=== PATIENT | female | born 1955 | race Caucasian/White ===

== ENCOUNTER 2020-07-23 07:18 | Inpatient (IN) | payer MEDICARE, OTHER ==
[~2020-07-23] VITALS: Ht 154.9 cm; Wt 93.0 kg
--- NOTE | 2020-07-23 07:26 | NUR ---
CONNOR FROM HOME FOR C/O GENERALIZED WEAKNESS, REC'S 250ML OF NS AUDIO VISUAL TECHNICIAN FOR LOW SBP OF 80S. PATIENT A/OX4, BREATHING EVEN AND UNLABORED, PRESENTED WITH ELEVATED HR UPON ARRIVAL, C/O NAUSEA. DR. WALDEN AT BEDSIDE FOR EVAL.
--- NOTE | 2020-07-23 07:27 | NUR ---
PATIENT APPLIED ON A CLEANING ASSOCIATE.
[2020-07-23] MEDS ORDERED: METOPROLOL TARTRATE INJ 5 MG/5 ML AMPUL IVP ONE (07:30)
[2020-07-23] MEDS ORDERED: METOPROLOL TARTRATE INJ 5 MG/5 ML AMPUL ONE (07:31)
[2020-07-23] MEDS ORDERED: ONDANSETRON HCL/PF 4 MG/2 ML VIAL ONE (07:50)
[2020-07-23] MEDS ORDERED: METOPROLOL TARTRATE 50 MG TABLET ONE (07:51)
[2020-07-23] MEDS: METOPROLOL SUCCINATE 50 MG TAB.SR.24H PO SCH (07:56)
[2020-07-23] MEDS ORDERED: ONDANSETRON HCL/PF - ER 4 MG/2 ML VIAL IV ONE (08:00)
--- NOTE | 2020-07-23 08:00 | NUR ---
MUD MILL TENDER AT BEDSIDE FOR BLOOD DRAW.
[2020-07-23 08:08] LABS: BASOPHILS # (AUTO) 0.1 /CMM (0.0-0.2); BASOPHILS % (AUTO) 0.7 % (0.0-2.0); EOSINOPHILS % (AUTO) 0.7 % (0.0-6.0); HEMATOCRIT 40 % (33-45); HEMOGLOBIN 13.4 g/dL (11.5-14.8); LYMPHOCYTES # (AUTO) 2.5 /CMM (0.8-4.8); LYMPHOCYTES % (AUTO) 28.2 % (20.0-44.0); MEAN CORPUSCULAR HGB CONC 34 g/dl (31.0-36.0); MEAN CORPUSCULAR VOLUME 90 fL (82-100); MONOCYTES # (AUTO) 0.7 /CMM (0.1-1.30); MONOCYTES % (AUTO) 7.7 % (2.0-12.0); NEUTROPHILS # (AUTO) 5.6 /CMM (1.8-8.9); NEUTROPHILS % (AUTO) 62.7 % (43.0-81.0); PLATELET COUNT (AUTO) 186 /CMM (150-450)
[2020-07-23 08:19] LABS: CALCIUM, SERUM 8.8 mg/dL (8.5-10.1); CARBON DIOXIDE 26 mmol/L (21-32); CHLORIDE 103 mmol/L (98-107); GLUCOSE 150 mg/dL (74-106); POTASSIUM 3.7 mmol/L (3.5-5.1); SODIUM SERUM 139 mmol/L (136-145); UREA NITROGEN, BLOOD 19 mg/dL (7-18)
--- NOTE | 2020-07-23 08:29 | NUR ---
COVID SWAB SENT.
[2020-07-23 08:32] LABS: NT-PRO BNP 601 pg/mL (0-125)
--- NOTE | 2020-07-23 08:35 | NUR ---
CALLED DR. SMITH [phone] DR. ROD IS COVERING
--- NOTE | 2020-07-23 08:38 | NUR ---
NEL DAUGHTER [phone]
[2020-07-23 09:06] LABS: THYROID STIMULATING HORMONE 16.315 uIU/mL (0.358-3.74)
--- NOTE | 2020-07-23 09:44 | NUR ---
DR. SILVESTRE AT BEDSIDE FOR EVAL.
[2020-07-23] MEDS ORDERED: LISI-768 PO (09:54)
[2020-07-23] MEDS ORDERED: METO25TA20 PO (09:54)
[2020-07-23] MEDS ORDERED: CALC500T52 PO (09:54)
[2020-07-23] MEDS ORDERED: FURO40TA5 PO (09:54)
[2020-07-23] MEDS ORDERED: ERGO500093 PO (09:54)
[2020-07-23] MEDS ORDERED: SERT-438 PO (09:54)
[2020-07-23] MEDS ORDERED: ATOR40TA PO (09:54)
[2020-07-23] MEDS ORDERED: NAPR-1009 PO (09:54)
[2020-07-23] MEDS ORDERED: ACET-285 PO (09:54)
[2020-07-23] MEDS ORDERED: POTA8TAB3 PO (09:54)
[2020-07-23] MEDS ORDERED: TEMA15CA PO (09:54)
[2020-07-23] MEDS ORDERED: LEVO25TA9 PO (09:54)
[2020-07-23] MEDS ORDERED: ASPI-1420 PO (09:54)
[2020-07-23] MEDS ORDERED: MAG HYDROX/AL HYDROX/SIMETH 30 ML UDC PO PRN (10:00)
[2020-07-23] MEDS ORDERED: AMIODARONE 450 MG in IV D5W 250 ML IV PRN (10:00)
[2020-07-23] MEDS ORDERED: AMIODARONE 150 MG in IV D5W 100 ML IV ONE (10:00)
[2020-07-23] MEDS ORDERED: ONDANSETRON HCL/PF 4 MG/2 ML VIAL IVP PRN (10:00)
[2020-07-23] MEDS ORDERED: Z GUARD REMEDY 2 OZ OINT TP PRN (10:00)
[2020-07-23] MEDS ORDERED: ENOXAPARIN SODIUM 40 MG/0.4 ML DISP.SYRIN SQ SCH (10:00)
[2020-07-23] MEDS ORDERED: ACETAMINOPHEN 325 MG TABLET PO PRN (10:00)
[2020-07-23] MEDS ORDERED: MAGNESIUM HYDROXIDE 30 ML UDC PO PRN (10:00)
--- NOTE | 2020-07-23 10:09 | NUR ---
COVID NEGATIVE RESULT.
--- NOTE | 2020-07-23 10:40 | NUR ---
room 116-1
--- NOTE | 2020-07-23 10:43 | NUR ---
PATIENT RESTING, NO DISTRESS NOTED. NEEDS ATTENDED.
[2020-07-23 10:56] LABS: CHOLESTEROL 154 mg/dL (<200); HDL CHOLESTEROL 58 mg/dL (40-60); LDL 75 mg/dL (0-99); TRIGLYCERIDES 92 mg/dL (30-150)
--- NOTE | 2020-07-23 10:58 | NUR ---
REPORT GIVEN TO BRAYDEN SIMONS FOR KATY.
[2020-07-23 11:21] LABS: THYROID STIMULATING HORMONE 5.943 uIU/mL (0.358-3.74)
--- NOTE | 2020-07-23 11:23 | NUR ---
PATIENT TAKEN TO [place] FLOOR VIA ACLS PROTOCOL, IN STABLE CONDITION.
--- NOTE | 2020-07-23 11:35 | NUR ---
RN NOTES RECEIVED PT FROM ER. REPORT GIVEN BY LILLI SIMONS. AWAKE, A/O X4. AMBULATORY. SKIN IS INTACT. IV ACCESS ON L HAND #20. DENIES ANY PAIN. STABLE ON ROOM AIR. BELONGING LIST SIGNED. PLACED TO BED, LOCKED AND IN LOWEST POSITION WITH SIDE RAILS UP X2. CALL LIGHT WITHIN REACH. WILL CONTINUE TO MONITOR.
[2020-07-23 12:00] VITALS: BP 103/59
[2020-07-23] MEDS: AMIODARONE 450 MG in IV D5W 250 ML IV PRN (13:44)
[2020-07-23 16:00] VITALS: BP 116/59
--- NOTE | 2020-07-23 18:45 | NUR ---
RN CLOSING NOTES NO SIGNIFICANT CHANGES THROUGHOUT THE SHIFT. STABLE ON ROOM AIR. NO SOB OR ANY DISTRESS. DENIES ANY PAIN. ALL DUE MEDS GIVEN. NEEDS ATTENDED. SAFETY MEASURES STILL IN PLACE. WILL ENDORSE TO NIGHT RN FOR KATY.
--- NOTE | 2020-07-23 19:00 | NUR ---
RN NOTE RECEIVED PATIENT IN BED RESTING ALERT ORIENTED X4 VERBALLY RESPONSIVE MARSHALLESE SPEAKING,ON ROOM AIR O2:99% IV SITE IS ON LEFT HAND INTACT PATENT ON AMIODARONE DRIP 1MG/MIN CONTINENT TO BOWEL/BLADDER,AMBULATORY WITH ASSIST,CALL LIGHT WITHIN REACH,BED IN LOW POSITION AND LOCKED,SAFETY MEASURE IMPLEMENT CONTINUE TO MONITOR.
--- NOTE | 2020-07-23 19:44 | NUR ---
RN NOTE AMIODARONE DRIP DECREASE TO 0.5MG/MIN PROTOCOL ORDER,CONTINUE TO MONITOR.
[2020-07-23 20:00] VITALS: BP 118/69
--- NOTE | 2020-07-23 21:59 | NUR ---
RN NOTE PATIENT COMPLAINED PAIN ON IV SITE,STARTED A NEW IV LINE ON RIGHT HAND 22 G WITH GOOD BLOOD RETURN NO INFILTRATION NO SWELLING,REMOVED LEFT HAND IV SITE.CONTINUE TO MONITOR.
[2020-07-23] MEDS: HYDROCODONE/APAP 5/325MG TABLET PO PRN (22:44)
[2020-07-24] VITALS (7 sets, daily range): BP systolic 106–142; BP diastolic 52–76
[2020-07-24] MEDS: AMIODARONE 450 MG in IV D5W 250 ML IV PRN
--- NOTE | 2020-07-24 04:57 | NUR ---
RN NOTE RECEIVED EKG RESULT IS IT NORMAL SINUS RHYTHM CONTINUE TO MONITOR
[2020-07-24 06:28] LABS: BASOPHILS % (AUTO) 0.5 % (0.0-2.0); EOSINOPHILS % (AUTO) 0.8 % (0.0-6.0); HEMATOCRIT 37 % (33-45); HEMOGLOBIN 12.6 g/dL (11.5-14.8); LYMPHOCYTES # (AUTO) 1.9 /CMM (0.8-4.8); LYMPHOCYTES % (AUTO) 30.9 % (20.0-44.0); MEAN CORPUSCULAR HGB CONC 34 g/dl (31.0-36.0); MEAN CORPUSCULAR VOLUME 91 fL (82-100); MONOCYTES # (AUTO) 0.4 /CMM (0.1-1.30); MONOCYTES % (AUTO) 6.3 % (2.0-12.0); NEUTROPHILS # (AUTO) 3.7 /CMM (1.8-8.9); NEUTROPHILS % (AUTO) 61.5 % (43.0-81.0); PLATELET COUNT (AUTO) 152 /CMM (150-450); RED BLOOD CELL COUNT(AUTO) 4.08 MIL/uL (4.0-5.2); WHITE BLOOD COUNT (AUTO) 6.1 K/uL (4.3-11.0)
--- NOTE | 2020-07-24 06:41 | NUR ---
RN NOTE PATIENT REMAINS ON ALERT ORIENTED X4 VERBALLY RESPONSIVE ON ROOM AIR NO SOB NOT ACUTE DISTRESS NOTED,SHE IS ON AMIODARONE DRIP 0.5MG/MIN IV SITE IS RIGHT HAND G 22 INTACT PATENT,ENDORSE NEXT COMING SHIFT FOR CONTINUATION OF CARE.
[2020-07-24 07:15] LABS: CREATININE 0.8 mg/dL (0.6-1.3); MAGNESIUM 1.9 mg/dL (1.8-2.4); PHOSPHORUS 3.8 mg/dL (2.5-4.9); POTASSIUM 3.4 mmol/L (3.5-5.1)
[2020-07-24] MEDS: METOPROLOL SUCCINATE 50 MG TAB.SR.24H PO SCH (08:09)
[2020-07-24] MEDS ORDERED: POTASSIUM CHLORIDE 20 MEQ TAB.PRT.SR PO ONE (10:00)
--- NOTE | 2020-07-24 12:00 | NUR ---
Patient noted with tenderness to right hand iv site. Iv site discontinued. Patient refused to have another peripheral iv inserted. Informed Dr SILVESTRE that patient is currently on amiodarone drip and refusing iv insertion. Per , to d.c iv amiodarone and po meds ordered for evening.
[2020-07-24] MEDS: LISINOPRIL (5MG) 5 MG TABLET PO SCH (17:12)
[2020-07-24] MEDS: DRONEDARONE HYDROCHLORIDE 400 MG TABLET PO SCH (18:00)
--- NOTE | 2020-07-24 19:29 | NUR ---
RN CLOSING NOTES Patient is alert and oriented. Patient is breathing even and unlabored. No c/o pain or discomfort. Endorsed to next shift for KATY. Call light with in reach. Bed is in lowest and locked position.
--- NOTE | 2020-07-24 20:00 | NUR ---
RN NOTE PT RECEIVED IN BED A/A/O X4. PT ON RA SATING 96%, PT ON TELE MONITOR SHOWING SR WITH HR IN 80s. NO COMPLAIN OF PIN OR DISCOMFORT AT THIS TIME. Addendum: 07/24/20 at 2014 by PURNIMA MENDEZ RN PT RECEIVED WITHOUT IV SITE, AND REFUSES TO REINSERT NEW IV.
[2020-07-24] MEDS: HYDROCODONE/APAP 5/325MG TABLET PO PRN (23:08)
[2020-07-25] VITALS: BP 132/70
[2020-07-25 04:00] VITALS: BP_SYST 119; BP_SYST 126; BP_DIAS 70; BP_DIAS 72
--- NOTE | 2020-07-25 07:17 | NUR ---
REPORT GIVEN TO ONCOMING SHIFT FOR KATY.
[2020-07-25] MEDS ORDERED: LEVOTHYROXINE SODIUM 25 MCG TABLET PO SCH (07:30)
[2020-07-25] MEDS ORDERED: POTASSIUM CHLORIDE 20 MEQ TAB.PRT.SR PO ONE (07:30)
--- NOTE | 2020-07-25 07:30 | NUR ---
RN OPENING NOTES Patient is alert and oriented. Patient is breathing even and unlabored. No c/o pain or discomfort. Patient did not have iv access due to refusal. Call light with in reach. Bed is in lowest and locked position.
[2020-07-25 08:00] VITALS: BP 126/72
[2020-07-25 08:13] VITALS: BP 110/68
[2020-07-25] MEDS: METOPROLOL SUCCINATE 50 MG TAB.SR.24H PO SCH (08:13)
[2020-07-25] MEDS: LISINOPRIL (5MG) 5 MG TABLET PO SCH (08:13)
[2020-07-25] MEDS: DRONEDARONE HYDROCHLORIDE 400 MG TABLET PO SCH (08:14)
[2020-07-25] MEDS ORDERED: SERTRALINE HCL 50 MG TABLET PO SCH (09:00)
[2020-07-25] MEDS ORDERED: APIX5TAB PO (09:00)
[2020-07-25] MEDS ORDERED: ATORVASTATIN 40 MG TABLET PO SCH (09:00)
[2020-07-25] MEDS ORDERED: DRON400T6 PO (09:00)
[2020-07-25] MEDS ORDERED: ONDANSETRON 4 MG TAB.RAPDIS PO PRN (13:00)
--- NOTE | 2020-07-25 13:51 | NUR ---
DISCHARGE NOTES Patient was discharged to home. Patient is alert and oriented. No c/o chest pain or dizziness. No c/o headache or blurred visiobn. Vitals checked 139/70,76,98% room air, 0/10. Patient noted with one episode of vomiting and nausea. Provided with prn medication with good effect. Informed Dr Schofield and per md ask patient if she would like to stay or go. Per patient she wants to go home. Patient discharged in good stable condition. Informed to follow up with Dr SILVESTRE IN ONE WEEK,.
== END 2020-07-25 14:59 | disposition home health service (06) | DRG 309 ==
LOC: ER 07:23 → TELE1 10:56 → TELE-TD 11:02 → TELE1 07-24 09:26
PROVIDERS: ADMIT Internal Medicine; ATTEND Internal Medicine
DX: I48.91 Unspecified atrial fibrillation (principal); J98.11 Atelectasis; E03.9 Hypothyroidism, unspecified; I10 Essential (primary) hypertension; E78.5 Hyperlipidemia, unspecified; Z79.82 Long term (current) use of aspirin; Z79.899 Other long term (current) drug therapy; E87.6 Hypokalemia; Z20.822 Contact with and (suspected) exposure to COVID-19
CPT/HCPCS: 36415; 71045-TC; 80048-TC; 80061-TC; 83735-TC; 83880; 84100-TC; 84439-TC; 84443-TC; 84484-TC; 85025-TC; 87081-TC; 93307-TC; C9803; G0378; J0282; J2405; J3490; J7050; J7060; Q0162